=== PATIENT | female | born 1970 | race African-American/Black ===

== ENCOUNTER 2018-10-16 12:28 | Inpatient (IN) | payer MEDICAID ==
[~2018-10-16] VITALS: Ht 152.4 cm; Wt 73.5 kg
[~2018-10-16 12:28] MED LIST: ACET-2853 PO; ASPI-986 PO; DOCU-138 PO; FERR-63 PO; INSLAN SQ; INSU100I3 SQ; ISOS30TA6 PO; JANUVIA PO; LIPITOR PO; LISI10TA5 PO; METFORMIN PO; METO10TA3 PO; METO25TA6 PO; NITR0.4T49 SL; OMEP20TA2 PO; PLAVIX PO; RANO10003 PO
[2018-10-16 17:31] LABS: BASOPHILS % 0.4 % (0.0-2.0); EOSINOPHILS % 0.3 % (0.0-5.0); HEMATOCRIT. 34.3 % (36.0-48.0); LYMPHOCYTES % 13.3 % (20.0-50.0); MEAN CORPUSCULAR HEMOGLOBIN 28.4 pg (28.0-32.0); MEAN CORPUSCULAR VOLUME 88.8 fL (81.0-99.0); MEAN PLATELET VOLUME 7.7 fl (7.4-10.4); MONOCYTES % 2.6 % (2.0-8.0); NEUTROPHILS % 83.4 % (40.0-76.0); PLATELET 394 x1000/uL (130-400); RED BLOOD CELL COUNT 3.86 mill/uL (4.2-5.4); RED CELL DISTRIBUTION WIDTH 16.4 % (11.6-14.6)
[2018-10-16 17:34] LABS: CHLORIDE 101 mEq/L (98-107)
[2018-10-16 17:43] LABS: CLARITY URINE CLEAR (CLEAR); COLOR URINE DARK YELLOW (YELLOW); KETONES URINE TRACE (NEGATIVE); LEUKOCYTE ESTERASE URINE TRACE (NEGATIVE); NITRITE URINE NEGATIVE (NEGATIVE); OCCULT BLOOD URINE NEGATIVE (NEGATIVE); PROTEIN URINE NEGATIVE (NEGATIVE); SPECIFIC GRAVITY URINE 1.029 (1.005-1.030); UROBILINOGEN URINE 0.2 E.U./dL (0.2-1.0)
[2018-10-16 17:48] LABS: PARTIAL THROMBOPLASTIN TIME 26.6 sec (23.4-31.0); PROTHROMBIN TIME 10.1 sec (9.1-11.1)
[2018-10-16] MEDS ORDERED: IOHEXOL-350 100 ML BOTTLE ONE (18:37)
[2018-10-16] MEDS ORDERED: CEFTRIAXONE 1 G PREMIX 50 ML IV ONE (18:45)
[2018-10-16] MEDS ORDERED: ASPIRIN 325MG EC TABLET PO ONE (19:15)
[2018-10-16] MEDS ORDERED: IPRATROPIUM/ALBUTEROL 0.5-3(2.5)MG/3ML NEB INH PRN (19:30)
[2018-10-16] MEDS ORDERED: CLONIDINE 0.1MG TABLET PO PRN (19:30)
[2018-10-16] MEDS ORDERED: HYDROCODONE/ACETAMINOPHEN 5/325MG TABLET PO PRN (19:30)
[2018-10-16] MEDS ORDERED: MAGNESIUM/ALUMINUM HYDROXIDE/SIMETHICONE 30ML UDC PO PRN (19:30)
[2018-10-16] MEDS ORDERED: ONDANSETRON HCL 4MG/2ML INJ IV PRN (19:30)
[2018-10-16 22:19] LABS: CHLORIDE 103 mEq/L (98-107)
[2018-10-16 22:28] LABS: CREATINE KINASE 89 IU/L (26-192); CREATINE KINASE MB FRACTION 1.4 ng/mL (0.5-3.6)
[2018-10-16 22:30] VITALS: BP 150/70
[2018-10-16] MEDS ORDERED: DEXTROSE 50% WATER 50ML SYRINGE IV PRN (23:00)
[2018-10-17] VITALS (7 sets, daily range): BP systolic 88–138; BP diastolic 46–66
[2018-10-17] MEDS: BLOOD SUGAR DIAGNOSTIC STRIP TEST SCH ×4 (06:15→21:37)
[2018-10-17] MEDS: INSULIN LISPRO 100 UNITS/ML SUBCUT SCH ×4 (06:15→21:37)
[2018-10-17 06:35] LABS: BASOPHILS % 0.5 % (0.0-2.0); EOSINOPHILS % 1.7 % (0.0-5.0); HEMATOCRIT. 31.3 % (36.0-48.0); HEMOGLOBIN. 10.4 g/dL (12.0-16.0); LYMPHOCYTES % 26.9 % (20.0-50.0); MEAN CORPUSCULAR HEMOGLOBIN 29.4 pg (28.0-32.0); MEAN CORPUSCULAR VOLUME 88.9 fL (81.0-99.0); MEAN PLATELET VOLUME 7.8 fl (7.4-10.4); MONOCYTES % 7.4 % (2.0-8.0); NEUTROPHILS % 63.5 % (40.0-76.0); PLATELET 343 x1000/uL (130-400); RED BLOOD CELL COUNT 3.52 mill/uL (4.2-5.4); RED CELL DISTRIBUTION WIDTH 16.1 % (11.6-14.6)
[2018-10-17 06:57] LABS: CREATINE KINASE 74 IU/L (26-192)
[2018-10-17 06:58] LABS: HDL CHOLESTEROL 59 mg/dL (40-59)
[2018-10-17 06:59] LABS: LDL CHOLESTEROL 81 mg/dL (5-100)
[2018-10-17 07:00] LABS: CREATINE KINASE MB FRACTION 1.2 ng/mL (0.5-3.6)
[2018-10-17] MEDS ORDERED: SODIUM CHLORIDE 0.9% 250 ML IV ONE (08:45)
[2018-10-17] MEDS: ASPIRIN 81MG EC TABLET PO SCH (08:53)
[2018-10-17] MEDS: ENOXAPARIN 40MG/0.4ML SYR SUBCUT SCH (08:53)
[2018-10-17] MEDS: ACETAMINOPHEN 325MG TABLET PO PRN ×2 (09:00→16:26)
[2018-10-17] MEDS ORDERED: MAGNESIUM 2 G PREMIX 50 ML IV SCH (11:30)
[2018-10-17] MEDS: LISINOPRIL 5MG TABLET PO SCH ×2 (11:30→21:34)
[2018-10-17] MEDS: CLOPIDOGREL 75MG TABLET PO SCH (12:26)
[2018-10-17] MEDS: RANOLAZINE 500 MG TAB.SR.12H PO SCH ×2 (12:26→21:33)
[2018-10-17] MEDS ORDERED: ATORVASTATIN CALCIUM 20MG TABLET PO SCH (21:00)
[2018-10-17] MEDS ORDERED: RANOLAZINE 500 MG TAB.SR.12H PO SCH (21:00)
[2018-10-18] VITALS: BP 114/45
[2018-10-18] MEDS: DOCUSATE SODIUM 100MG CAPSULE PO PRN ×2 (00:41→08:21)
[2018-10-18 04:00] VITALS: BP 102/51
[2018-10-18 06:44] LABS: BASOPHILS % 0.4 % (0.0-2.0); EOSINOPHILS % 2.4 % (0.0-5.0); HEMOGLOBIN. 10.5 g/dL (12.0-16.0); LYMPHOCYTES % 34.9 % (20.0-50.0); MEAN CORPUSCULAR HEMOGLOBIN 29.3 pg (28.0-32.0); MEAN CORPUSCULAR VOLUME 89.6 fL (81.0-99.0); MEAN PLATELET VOLUME 7.9 fl (7.4-10.4); MONOCYTES % 9.3 % (2.0-8.0); PLATELET 332 x1000/uL (130-400); RED BLOOD CELL COUNT 3.58 mill/uL (4.2-5.4); RED CELL DISTRIBUTION WIDTH 16.4 % (11.6-14.6)
[2018-10-18 06:58] LABS: CHLORIDE 102 mEq/L (98-107)
[2018-10-18 07:11] LABS: CREATINE KINASE 59 IU/L (26-192)
[2018-10-18 07:14] LABS: CREATINE KINASE MB FRACTION 1.2 ng/mL (0.5-3.6)
[2018-10-18] MEDS: BLOOD SUGAR DIAGNOSTIC STRIP TEST SCH ×3 (07:22→17:19)
[2018-10-18] MEDS: INSULIN LISPRO 100 UNITS/ML SUBCUT SCH ×2 (07:25→12:33)
[2018-10-18 08:00] VITALS: BP 102/53
[2018-10-18] MEDS: RANOLAZINE 500 MG TAB.SR.12H PO SCH (08:20)
[2018-10-18] MEDS: ACETAMINOPHEN 325MG TABLET PO PRN (08:21)
[2018-10-18] MEDS: CLOPIDOGREL 75MG TABLET PO SCH (08:21)
[2018-10-18] MEDS: ENOXAPARIN 40MG/0.4ML SYR SUBCUT SCH (08:21)
[2018-10-18] MEDS: ASPIRIN 81MG EC TABLET PO SCH (08:21)
[2018-10-18] MEDS: LISINOPRIL 5MG TABLET PO SCH (08:22)
[2018-10-18 11:59] VITALS: BP_SYST 95; BP_SYST 98; BP_SYST 99; BP_DIAS 41; BP_DIAS 46
[2018-10-18] MEDS ORDERED: MECLIZINE 25MG TABLET PO PRN (14:00)
[2018-10-18 15:39] VITALS: BP 102/50
[2018-10-18] MEDS ORDERED: MAGNESIUM 2 G PREMIX 50 ML IV NR (16:00)
[2018-10-18 17:42] VITALS: BP 102/50
[2018-10-18] MEDS ORDERED: LISINOPRIL 2.5MG TABLET PO SCH (21:00)
== END 2018-10-18 18:30 | disposition home or self-care (01) | DRG 48 ==
LOC: ER 12:28 → 8WST 18:56 → ENRESERV 20:14
PROVIDERS: ADMIT Internal Medicine; ATTEND Internal Medicine
DX: G90.8 Other disorders of autonomic nervous system (principal); E83.42 Hypomagnesemia; D50.9 Iron deficiency anemia, unspecified; E11.9 Type 2 diabetes mellitus without complications; E66.9 Obesity, unspecified; D63.8 Anemia in other chronic diseases classified elsewhere; E78.00 Pure hypercholesterolemia, unspecified; M94.0 Chondrocostal junction syndrome [Tietze]; E78.5 Hyperlipidemia, unspecified; I10 Essential (primary) hypertension; I25.10 Atherosclerotic heart disease of native coronary artery without angina pectoris; I25.2 Old myocardial infarction; K21.9 Gastro-esophageal reflux disease without esophagitis; Z79.02 Long term (current) use of antithrombotics/antiplatelets; Z79.4 Long term (current) use of insulin; Z79.82 Long term (current) use of aspirin; Z90.710 Acquired absence of both cervix and uterus; Z95.5 Presence of coronary angioplasty implant and graft; Z88.5 Allergy status to narcotic agent; Z68.31 Body mass index [BMI] 31.0-31.9, adult
CPT/HCPCS: 36415; 70551; 71045; 71275; 80048; 80061; 82550; 82553; 82962; 83036; 83735; 83880; 84443; 84484; 85379; 93005; 93880; 93970; 96365; 99285; J0696; J1650; J1815; J3475; J7050; J8597; Q9967

== ENCOUNTER → 2022-11-26 | Day surgery (SDC) | payer MEDICAID ==
[~2022-11-26] VITALS: Ht 156.2 cm; Wt 63.0 kg
[~2022-11-26] MED LIST changes: -ACET-2853 PO; +ACET-3163 PO; +AMIO100T4 PO; +ATOR20TA65 MT; +BALANCED SALT IRRIG SOLN 15ML ONE; +BALANCED SALT IRRIG SOLN COMB1 500ML OP NR; +CIPROFLOXACIN 0.3% OPHTH SOLN 2.5ML ONE; +CYCLOPENTOLATE HCL 1% OPHTH DROPS 2ML ONE; +CYCLOPENTOLATE HCL 1% OPHTH DROPS 2ML RIGHTEYE ONE; +DOCU-138 MT; +DULA1.5P SQ; +FENTANYL CITRATE/PF 50MCG/ML 2ML VIAL ONE; +HYALURONATE SODIUM 10 MG/ML 0.55ML SYRINGE IO ONE; -ISOS30TA6 PO; +ISOS30TA91 PO; +KETOROLAC 30MG/ML VIAL ONE; +LEVE500T98 MT; +LIDOCAINE HCL/PF 2% 20 MG/ML 10ML VIAL ONE; +LISI10TA26 PO; -LISI10TA5 PO; +MIDAZOLAM HCL 2 MG/2 ML VIAL ONE; +NEO/POLYMYX B SULF/DEXAMETH OPHTH OINT 3.5GM ONE; -OMEP20TA2 PO; +OMEP20TA23 PO; +PARO10TA74 MT; +PHENYLEPHRINE HCL 10% OPHTH DROPS 5ML ONE; +PHENYLEPHRINE HCL 10% OPHTH DROPS 5ML RIGHTEYE ONE; +PREDNISOLONE ACETATE 1% OPHTH DROPS 5ML ONE; +SODIUM CHLORIDE 0.9% 1,000 ML IV SCH; +TAMS-11 PO; +TROPICAMIDE 1% OPHTH DROPS 15ML ONE; +TROPICAMIDE 1% OPHTH DROPS 15ML RIGHTEYE ONE; +TRYPAN BLUE 0.5 ML DISP.SYRIN IO ONE
== END | disposition home or self-care (01) ==
LOC: OR 06:47
PROVIDERS: ATTEND Ophthalmology
DX: E11.36 Type 2 diabetes mellitus with diabetic cataract (principal); H25.89 Other age-related cataract; I10 Essential (primary) hypertension; E78.00 Pure hypercholesterolemia, unspecified; I25.10 Atherosclerotic heart disease of native coronary artery without angina pectoris; M19.90 Unspecified osteoarthritis, unspecified site; D64.9 Anemia, unspecified; Z79.82 Long term (current) use of aspirin; Z79.84 Long term (current) use of oral hypoglycemic drugs; Z79.899 Other long term (current) drug therapy; Z98.890 Other specified postprocedural states; Z20.822 Contact with and (suspected) exposure to COVID-19; Z88.6 Allergy status to analgesic agent; Z88.8 Allergy status to other drugs, medicaments and biological substances
CPT/HCPCS: 66984; 82962; 87426; C9803; J2250; J3010; J3490; Q9957; V2632; J1885

== ENCOUNTER → 2023-04-29 | Day surgery (SDC) | payer MEDICAID ==
[~2023-04-29] VITALS: Ht 157.5 cm; Wt 60.9 kg
[~2023-04-29] MED LIST changes: -ACET-3163 PO; -AMIO100T4 PO; +AMLO5TAB88 PO; +CLOP-31 PO; +CYCLOPENTOLATE HCL 1% OPHTH DROPS 2ML LEFTEYE SCH; -CYCLOPENTOLATE HCL 1% OPHTH DROPS 2ML ONE; -CYCLOPENTOLATE HCL 1% OPHTH DROPS 2ML RIGHTEYE ONE; -DOCU-138 PO; +FAMO20TA8 PO; -INSLAN SQ; -INSU100I3 SQ; -JANUVIA PO; -KETOROLAC 30MG/ML VIAL ONE; -LEVE500T98 MT; -LIDOCAINE HCL/PF 2% 20 MG/ML 10ML VIAL ONE; +LIDOCAINE HCL/PF 2% 20MG/ML 5 ML/VIAL ONE; -LIPITOR PO; -LISI10TA26 PO; +METF-416 PO; -METO10TA3 PO; +PHENYLEPHRINE HCL 10% OPHTH DROPS 5ML LEFTEYE SCH; -PHENYLEPHRINE HCL 10% OPHTH DROPS 5ML ONE; -PHENYLEPHRINE HCL 10% OPHTH DROPS 5ML RIGHTEYE ONE; +SODIUM CHLORIDE 0.9% 1,000 ML IV ONE; -SODIUM CHLORIDE 0.9% 1,000 ML IV SCH; -TAMS-11 PO; +TETRACAINE 0.5% OPHTH DROPS 4ML ONE; +TROPICAMIDE 1% OPHTH DROPS 15ML LEFTEYE SCH; -TROPICAMIDE 1% OPHTH DROPS 15ML ONE; -TROPICAMIDE 1% OPHTH DROPS 15ML RIGHTEYE ONE
== END | disposition home or self-care (01) ==
LOC: OR 06:13
PROVIDERS: ATTEND Ophthalmology
DX: E11.36 Type 2 diabetes mellitus with diabetic cataract (principal); H25.22 Age-related cataract, morgagnian type, left eye; I10 Essential (primary) hypertension; E78.00 Pure hypercholesterolemia, unspecified; Z79.82 Long term (current) use of aspirin; Z79.84 Long term (current) use of oral hypoglycemic drugs; Z79.899 Other long term (current) drug therapy; Z98.890 Other specified postprocedural states; Z88.6 Allergy status to analgesic agent; Z88.8 Allergy status to other drugs, medicaments and biological substances
CPT/HCPCS: 66984; 82962; J3010; J2250; J3490; V2632; Q9957

== ENCOUNTER 2023-07-17 06:37 | Inpatient (IN) | payer MEDICAID, OTHER ==
[2023-07-17] VITALS (30 sets, daily range): BP systolic 85–179; BP diastolic 53–92; PULSE 77–100; RESP 10–20; TEMP 97.8–98.1
[~2023-07-17] VITALS: Ht 152.4 cm; Wt 56.2 kg
[~2023-07-17 06:37] MED LIST changes: -BALANCED SALT IRRIG SOLN 15ML ONE; -BALANCED SALT IRRIG SOLN COMB1 500ML OP NR; -CIPROFLOXACIN 0.3% OPHTH SOLN 2.5ML ONE; -CYCLOPENTOLATE HCL 1% OPHTH DROPS 2ML LEFTEYE SCH; -DOCU-138 MT; -DULA1.5P SQ; -FENTANYL CITRATE/PF 50MCG/ML 2ML VIAL ONE; -FERR-63 PO; -HYALURONATE SODIUM 10 MG/ML 0.55ML SYRINGE IO ONE; -LIDOCAINE HCL/PF 2% 20MG/ML 5 ML/VIAL ONE; -METFORMIN PO; -MIDAZOLAM HCL 2 MG/2 ML VIAL ONE; -NEO/POLYMYX B SULF/DEXAMETH OPHTH OINT 3.5GM ONE; -NITR0.4T49 SL; -PHENYLEPHRINE HCL 10% OPHTH DROPS 5ML LEFTEYE SCH; -PLAVIX PO; -PREDNISOLONE ACETATE 1% OPHTH DROPS 5ML ONE; -SODIUM CHLORIDE 0.9% 1,000 ML IV ONE; -TETRACAINE 0.5% OPHTH DROPS 4ML ONE; -TROPICAMIDE 1% OPHTH DROPS 15ML LEFTEYE SCH; -TRYPAN BLUE 0.5 ML DISP.SYRIN IO ONE
[2023-07-17] MEDS ORDERED: LIDOCAINE HCL 1% 20ML VIAL (Pyxis) INJ ONE (07:49)
[2023-07-17] MEDS ORDERED: HEPARIN 1000 UNITS/ML 10ML ONE (07:49)
[2023-07-17] MEDS ORDERED: IODIXANOL 320MG/ML 100 ML BOTTLE IV ONE (07:49)
[2023-07-17] MEDS ORDERED: BEMP1TAB PO (08:14)
[2023-07-17] MEDS ORDERED: ATOR80TA PO (08:14)
[2023-07-17] MEDS ORDERED: MIDAZOLAM HCL 2 MG/2 ML VIAL ONE (08:23)
[2023-07-17] MEDS ORDERED: FENTANYL CITRATE/PF 50MCG/ML 2ML VIAL ONE (08:23)
[2023-07-17] MEDS ORDERED: NITR0.4T SL (08:38)
[2023-07-17] MEDS ORDERED: CLON0.1T PO (08:38)
[2023-07-17] MEDS ORDERED: ATROPINE SULFATE 1MG/10ML SYR IV PRN (09:30)
[2023-07-17] MEDS ORDERED: ONDANSETRON HCL 4MG/2ML INJ IV PRN (09:30)
[2023-07-17] MEDS ORDERED: ASPIRIN 81MG TABLET ONE (09:32)
[2023-07-17] MEDS ORDERED: CLOPIDOGREL 75MG TABLET ONE (09:33)
[2023-07-17] MEDS: AMLODIPINE 5MG TABLET PO SCH (09:45)
[2023-07-17] MEDS ORDERED: DEXTROSE 50% WATER 50ML SYRINGE IV PRN (09:45)
[2023-07-17] MEDS: EZETIMIBE 10MG TABLET PO SCH (10:50)
[2023-07-17] MEDS: LISINOPRIL 10MG TABLET PO SCH (10:51)
[2023-07-17] MEDS: BLOOD SUGAR DIAGNOSTIC STRIP TEST SCH ×3 (10:56→21:00)
[2023-07-17] MEDS: INSULIN LISPRO 100 UNITS/ML SUBCUT SCH ×3 (10:58→21:00)
[2023-07-17] MEDS ORDERED: INFLUENZA VACCINE 05/PF 0.5 ML SYRINGE IM ONE (11:30)
[2023-07-17] MEDS: ACETAMINOPHEN 325MG TABLET PO PRN ×2 (17:43→22:22)
[2023-07-17] MEDS: METOPROLOL TARTRATE 25MG TABLET PO SCH (21:00)
[2023-07-18] VITALS: BP 113/58; PULSE 93; RESP 17; TEMP 97.8
[2023-07-18 04:00] VITALS: BP 110/68; PULSE 93; RESP 13
[2023-07-18] MEDS: BLOOD SUGAR DIAGNOSTIC STRIP TEST SCH ×3 (06:45→17:36)
[2023-07-18] MEDS: INSULIN LISPRO 100 UNITS/ML SUBCUT SCH ×3 (07:20→17:20)
[2023-07-18 08:00] VITALS: BP 121/79; PULSE 84; RESP 16; TEMP 97.6
[2023-07-18 08:42] LABS: BASOPHILS % 0.7 % (0.0-2.0); EOSINOPHILS % 3.5 % (0.0-5.0); HEMATOCRIT. 38.3 % (36.0-48.0); HEMOGLOBIN. 12.8 g/dL (12.0-16.0); LYMPHOCYTES % 32.4 % (20.0-50.0); MEAN CORPUSCULAR HEMOGLOBIN 31.5 pg (28.0-32.0); MEAN CORPUSCULAR HGB CONC 33.4 g/dL (31.0-37.0); MEAN CORPUSCULAR VOLUME 94.2 fL (81.0-99.0); MEAN PLATELET VOLUME 7.3 fl (7.4-10.4); MONOCYTES % 8.3 % (2.0-8.0); NEUTROPHILS % 55.1 % (40.0-76.0); PLATELET 335 x1000/uL (130-400); RED BLOOD CELL COUNT 4.06 mill/uL (4.2-5.4); RED CELL DISTRIBUTION WIDTH 14.7 % (11.6-14.6); WHITE BLOOD COUNT 5.1 x1000/uL (4.5-11.0)
[2023-07-18] MEDS: METOPROLOL TARTRATE 25MG TABLET PO SCH (08:54)
[2023-07-18] MEDS: LISINOPRIL 10MG TABLET PO SCH (08:54)
[2023-07-18] MEDS: EZETIMIBE 10MG TABLET PO SCH (08:54)
[2023-07-18] MEDS: AMLODIPINE 5MG TABLET PO SCH (08:55)
[2023-07-18 08:59] LABS: CHLORIDE 108 mEq/L (98-107); INDEX HEMOLYSI 1 (1-3); INDEX ICTERIC 1 (1-4); INDEX LIPEMIC 1 (1-3); SODIUM 137 mEq/L (136-145)
[2023-07-18] MEDS ORDERED: ASPIRIN 325MG TABLET PO SCH (09:00)
[2023-07-18] MEDS ORDERED: CLOPIDOGREL 75MG TABLET PO SCH (09:00)
[2023-07-18 09:08] LABS: CALCIUM 9.3 mg/dL (8.5-10.1); CARBON DIOXIDE 27 mEq/L (21-32); GLUCOSE 121 mg/dL (70-105); UREA NITROGEN BLOOD 22 mg/dL (7-21)
[2023-07-18 12:00] VITALS: BP 75/95; PULSE 86; RESP 17; TEMP 97.8
[2023-07-18] MEDS ORDERED: SODIUM CHLORIDE 0.45% 1,000 ML IV SCH (12:00)
[2023-07-18 16:00] VITALS: BP 95/60; PULSE 81; RESP 18; TEMP 97.9
[2023-07-18 18:46] VITALS: BP 127/58; PULSE 94; TEMP 98.4; O2SAT 99
== END 2023-07-18 19:20 | disposition home or self-care (01) | DRG 182 ==
LOC: CCL 06:37 → 3WST 10:05
PROVIDERS: ADMIT Specialist; ATTEND Specialist
PROC: 047M3ZZ Dilation of Right Popliteal Artery, Percutaneous Approach (ICD-10-PCS; principal; 2023-07-17)
DX: E11.51 Type 2 diabetes mellitus with diabetic peripheral angiopathy without gangrene (principal); E78.00 Pure hypercholesterolemia, unspecified; I70.201 Unspecified atherosclerosis of native arteries of extremities, right leg; I25.10 Atherosclerotic heart disease of native coronary artery without angina pectoris; I10 Essential (primary) hypertension; I25.2 Old myocardial infarction; Z79.84 Long term (current) use of oral hypoglycemic drugs; Z79.899 Other long term (current) drug therapy; Z90.710 Acquired absence of both cervix and uterus; Z98.61 Coronary angioplasty status; Z79.02 Long term (current) use of antithrombotics/antiplatelets; Z79.82 Long term (current) use of aspirin; Z95.820 Peripheral vascular angioplasty status with implants and grafts
CPT/HCPCS: 36415; 80048; 82962; 83036; 83735; 85025; 85347; 90686; C1726; J1644; J1815; J2250; J3010; J3490; Q9967

== ENCOUNTER 2023-12-26 06:13 | Day surgery (SDC) | payer MEDICAID ==
[~2023-12-26] VITALS: Ht 157.5 cm; Wt 58.1 kg
[~2023-12-26 06:13] MED LIST changes: +ASCO125T PO; +ASPI-1497 PO; -ASPI-986 PO; -ATOR20TA65 MT; +ATOR80TA PO; +BEMP1TAB PO; +CLON0.1T PO; +NITR0.4T SL; -OMEP20TA23 PO; -PARO10TA74 MT; -RANO10003 PO; +ZINC100T2 PO
[2023-12-26] MEDS ORDERED: IODIXANOL 320 MG/ML 150ML BOTTLE IV ONE (07:28)
[2023-12-26] MEDS ORDERED: LIDOCAINE HCL 1% 20ML VIAL (Pyxis) INJ ONE (07:28)
[2023-12-26] MEDS ORDERED: IODIXANOL 320MG/ML 100 ML BOTTLE IV ONE (07:28)
[2023-12-26] MEDS ORDERED: HEPARIN 1000 UNITS/ML 10ML ONE (07:28)
[2023-12-26] MEDS ORDERED: MIDAZOLAM HCL 2 MG/2 ML VIAL ONE (08:36)
[2023-12-26] MEDS ORDERED: FENTANYL CITRATE/PF 50MCG/ML 2ML VIAL ONE (08:36)
[2023-12-26] MEDS ORDERED: METO-293 PO (09:00)
[2023-12-26] MEDS ORDERED: RANO500T6 PO (09:00)
[2023-12-26] MEDS ORDERED: LISI40TA13 PO (09:00)
[2023-12-26] MEDS ORDERED: ONDANSETRON HCL 4MG/2ML INJ IV PRN (09:30)
[2023-12-26] MEDS ORDERED: ATROPINE SULFATE 1MG/10ML SYR IV PRN (09:30)
[2023-12-26] MEDS ORDERED: ACETAMINOPHEN 325MG TABLET PO PRN (09:30)
== END 2023-12-26 15:45 | disposition home or self-care (01) ==
LOC: CCL 06:13
PROVIDERS: ATTEND Specialist
DX: E11.51 Type 2 diabetes mellitus with diabetic peripheral angiopathy without gangrene (principal); I73.9 Peripheral vascular disease, unspecified; E78.00 Pure hypercholesterolemia, unspecified; I10 Essential (primary) hypertension; I25.10 Atherosclerotic heart disease of native coronary artery without angina pectoris; I25.2 Old myocardial infarction; Z79.84 Long term (current) use of oral hypoglycemic drugs; Z79.899 Other long term (current) drug therapy; Z98.890 Other specified postprocedural states; Z88.6 Allergy status to analgesic agent; Z88.8 Allergy status to other drugs, medicaments and biological substances
CPT/HCPCS: 75710; 82962; 36246; C1893; C1760; J3010; Q9967 ×2; J1644 ×2; J3490; J2250; C1769; 99152; G0500

== ENCOUNTER 2025-07-09 21:04 | Emergency (ER) | payer MEDICAID ==
[~2025-07-09] VITALS: Ht 167.6 cm; Wt 50.0 kg
[~2025-07-09 21:04] MED LIST changes: -AMLO5TAB88 PO; +ASPI-1406 PO; -ATOR80TA PO; -BEMP1TAB PO; -CLON0.1T PO; +GABA-1180 PO; -ISOS30TA91 PO; +LIP40 PO; +METF-414 PO; -METF-416 PO; +METH-773 PO; +METO10TA3 PO; +POLY17PO43 PO; +SENN1TAB35 PO; -ZINC100T2 PO; +ZINC100T9 PO
[2025-07-09] MEDS ORDERED: MORPHINE SULFATE 4 MG/ML INJ (FOR IV/IM USE) IV ONE (22:15)
[2025-07-09 22:42] LABS: BASOPHILS % 0.5 % (0.0-2.0); EOSINOPHILS % 0.3 % (0.0-5.0); HEMATOCRIT. 37.4 % (36.0-48.0); HEMOGLOBIN. 11.3 g/dL (12.0-16.0); LYMPHOCYTES % 14.1 % (20.0-50.0); MEAN PLATELET VOLUME 7.2 fl (7.4-10.4); MONOCYTES % 2.7 % (2.0-8.0); NEUTROPHILS % 82.4 % (40.0-76.0); PLATELET 639 x1000/uL (130-400); RED BLOOD CELL COUNT 3.95 mill/uL (4.2-5.4); RED CELL DISTRIBUTION WIDTH 17.1 % (11.6-14.6)
[2025-07-09] MEDS: DIPHENHYDRAMINE 50MG/ML VIAL IV ONE (23:03)
[2025-07-09] MEDS: ONDANSETRON HCL 4MG/2ML INJ IV ONE (23:03)
[2025-07-09] MEDS: TRAMADOL 50MG TABLET PO ONE (23:03)
[2025-07-09 23:06] LABS: UREA NITROGEN BLOOD 20 mg/dL (9-23)
[2025-07-09 23:08] LABS: ASPARTATE AMINOTRANSFERASE 70 IU/L (<34); BILIRUBIN DIRECT 0.1 mg/dL (<=3.0); CREATININE 1.4 mg/dL (0.6-1.0)
[2025-07-09 23:09] LABS: BILIRUBIN TOTAL 0.3 mg/dL (0.1-1.0); PROTEIN TOTAL 7.2 g/dL (6.0-8.3)
[2025-07-09 23:11] LABS: TROPONIN I HIGH SENSITIVITY 1205 ng/L (3.0-34)
[2025-07-09] MEDS ORDERED: VANCOMYCIN 1G PREMIX 200 ML IV NR (23:15)
[2025-07-09] MEDS: SODIUM CHLORIDE 0.9% (SEPSIS BOLUS) IV NR (23:44)
[2025-07-09] MEDS: PIPERACILLIN/TAZO 3.375G/50ML 50 ML IV NR (23:46)
[2025-07-10] MEDS: SODIUM CHLORIDE 0.9% 1,000 ML IV ONE (00:08)
[2025-07-10] MEDS: MIDAZOLAM HCL 2 MG/2 ML VIAL IV ONE (00:11)
[2025-07-10 00:25] VITALS: PULSE 130; RESP 16; O2SAT 94
[2025-07-10] MEDS ORDERED: ROCURONIUM BROMIDE 10MG/ML VIAL 5ML IV ONE (00:45)
[2025-07-10 01:10] VITALS: O2SAT 99
[2025-07-10] MEDS: PROPOFOL 10MG/ML 100ML 100 ML IV SCH (01:10)
[2025-07-10 01:16] LABS: TROPONIN I HIGH SENSITIVITY 1620 ng/L (3.0-34)
[2025-07-10] MEDS ORDERED: IOHEXOL-350 100 ML BOTTLE ONE (01:23)
[2025-07-10 01:40] LABS: BG BASE EXCESS -14.7 mmol/L (-2.0-3.0); BG CARBOXYHEMOGLOBIN 0.1 % (0.5-1.5); BG DEOXYHEMOGLOBIN 9.9 % (0.0-5.0); BG FRACTION INSPIRED OXYGEN 100; BG HCO3 ACT 14.8 mmol/L (21.0-28.0); BG METHEMOGLOBIN 0.0 % (0.5-1.5); BG OXYGEN SATURATION 90.1 % (94.0-98.0); BG OXYHEMOGLOBIN 90.0 % (94.0-98.0); BG PCO2 50.0 mmHg (32.0-45.0); BG PEEP (cmH2O) 5.0 cmH2O; BG PH 7.089 (7.350-7.450); BG PO2 87.1 mmHg (83.0-108.0); BG SAMPLE SITE LEFT RADIAL; BG TIDAL VOLUME(mL) 350.0 mL; BG TOTAL HEMOGLOBIN 11.8 g/dL (12.0-16.0); BG VENT MODE VENT - AC; BG VENT RATE 18.0 set
[2025-07-10 01:45] VITALS: PULSE 102; RESP 20; O2SAT 91
[2025-07-10] MEDS ORDERED: DEXTROSE 50% WATER 50ML SYRINGE IV PRN ×2 (01:45)
[2025-07-10] MEDS ORDERED: VASOPRESSIN 20 UNIT in SODIUM CHLORIDE 0.9% 99 ML IV PRN (01:45)
[2025-07-10] MEDS ORDERED: INSULIN REGULAR 100U/100ML PMX 100 ML IV SCH ×2 (01:45→02:45)
[2025-07-10] MEDS ORDERED: NOREPINEPHRINE 32 MG in DEXT 5% WATER 218 ML IV PRN (01:45)
[2025-07-10] MEDS ORDERED: ACETAMINOPHEN 650MG/20.3ML UDC NG PRN (01:45)
[2025-07-10] MEDS ORDERED: PHENYLEPHRINE 100 MG in DEXT 5% WATER 240 ML IV PRN (01:45)
[2025-07-10] MEDS ORDERED: IPRATROPIUM/ALBUTEROL 0.5-3(2.5)MG/3ML NEB NEB PRN (01:45)
[2025-07-10] MEDS ORDERED: BLOOD SUGAR DIAGNOSTIC STRIP TEST SCH (01:45)
[2025-07-10] MEDS ORDERED: SODIUM CHLORIDE 10% FOR INH 15ML NEB INH SCH (02:00)
[2025-07-10] MEDS ORDERED: EPINEPHRINE 5 MG in SODIUM CHLORIDE 0.9% 245 ML IV SCH (02:00)
[2025-07-10] MEDS: EPINEPHRINE 5 MG in SODIUM CHLORIDE 0.9% 245 ML IV SCH (02:06)
[2025-07-10] MEDS: NOREPINEPHRINE 8MG/250ML PMX 250 ML IV SCH (02:07)
[2025-07-10] MEDS: SODIUM BICARBONATE 150 MEQ in DEXTROSE 5% WATER 850 ML IV STA (02:36)
[2025-07-10] MEDS ORDERED: DOPAMINE 800MG PREMIX (DOUBLE) 250 ML IV PRN ×2 (03:00)
[2025-07-10] MEDS ORDERED: VANCOMYCIN 1GM/200ML PMX (BAXTER) IV NR (03:00)
[2025-07-10 03:06] VITALS: BP 119/91; PULSE 124; RESP 17; TEMP 36.3; O2SAT 95
[2025-07-10 03:32] LABS: BG BASE EXCESS -16.9 mmol/L (-2.0-3.0); BG CARBOXYHEMOGLOBIN 0.4 % (0.5-1.5); BG DEOXYHEMOGLOBIN 12.6 % (0.0-5.0); BG FRACTION INSPIRED OXYGEN 100; BG HCO3 ACT 14.9 mmol/L (21.0-28.0); BG METHEMOGLOBIN 0.1 % (0.5-1.5); BG OXYGEN SATURATION 87.3 % (94.0-98.0); BG OXYHEMOGLOBIN 86.9 % (94.0-98.0); BG PCO2 65.9 mmHg (32.0-45.0); BG PH 6.973 (7.350-7.450); BG PO2 88.0 mmHg (83.0-108.0); BG SAMPLE SITE LEFT FEMORAL; BG TIDAL VOLUME(mL) 400.0 mL; BG TOTAL HEMOGLOBIN 11.2 g/dL (12.0-16.0); BG VENT MODE VENT - AC; BG VENT RATE 20.0 set
[2025-07-10] MEDS ORDERED: PIPERACILLIN/TAZO 3.375G/50ML 50 ML IV SCH (06:00)
[2025-07-10] MEDS ORDERED: METHYLPREDNISOLONE SOD SUCC 40MG/ML (ACT-O-VIAL) IV SCH (06:00)
[2025-07-10] MEDS ORDERED: ATROPINE SULFATE 1MG/10ML SYR ONE (14:09)
[2025-07-10] MEDS ORDERED: CALCIUM CHLORIDE 1GM/10ML SYR IV ONE (14:09)
[2025-07-10] MEDS ORDERED: EPINEPHRINE 0.1MG/ML (1:10,000) 10ML SYR ONE (14:09)
[2025-07-10] MEDS ORDERED: SODIUM BICARBONATE 8.4% 50MEQ/50ML SYR IV ONE (14:09)
== END 2025-07-10 03:39 ==
LOC: ER 21:04 → EDBEDREQTM 07-10 01:23 → EDBEDREQ 07-10 01:23 → EDBEDREQDT 07-10 01:23 → EDBEDREQSVC 07-10 01:24 → EDBEDREQTM 07-10 01:24 → ENRESERV 07-10 03:20 → ER 07-10 03:39 → CMPBEDREQ 07-10 08:26
DX: A41.9 Sepsis, unspecified organism (principal); R65.21 Severe sepsis with septic shock; I46.9 Cardiac arrest, cause unspecified; E11.65 Type 2 diabetes mellitus with hyperglycemia; I11.0 Hypertensive heart disease with heart failure
CPT/HCPCS: 80076; 80048; 83880; 83605 ×2; 83735; 85025; 85379; 87040; 84484 ×2; 36415 ×2; 71045 ×2; 96365; 96375; 99291; 82962; 71275; 82805; 82375; 92950; 31500; 93005; 94070; 36600; J1200; J2405; J2543; Q9967; J0461; J3490 ×7; J1265; J1815; J2250; J2704; J7070; J7050; Z7610 ×6; 94002; J7131